=== PATIENT | female | born 1950 ===

== ENCOUNTER 2018-09-28 07:40 | Day surgery (SDC) | payer OTHER ==
[~2018-09-28 07:40] MED LIST: CIPRO500 MG PO; FORTAMET500 MG PO; GLIPIZIDE ER10 MG PO; LEVOTHYROXINE75 MCG PO; LISINOPRIL2.5 MG PO; MECLIZINE HCL12.5 MG PO; PENTOXIFYLLINE400 MG PO; SINGULAIR10 MG PO; ZANTAC300 MG PO; ZOCOR20 MG PO; [UNRECOGNIZED DRUG - OTHER]
[2018-09-28] MEDS ORDERED: ULTRACET PO (12:27)
[2018-09-28] MEDS ORDERED: MACROBID 100 M100 MG PO (12:28)
== END 2018-09-28 14:00 | disposition home or self-care (01) ==
LOC: CIR.AMB 07:40
DX: N81.3 Complete uterovaginal prolapse (principal)